=== PATIENT | female | born 2000 | race Caucasian/White ===

== ENCOUNTER 2023-06-17 09:24 | Outpatient (CLI) | payer OTHER ==
[2023-06-17 12:02] LABS: HCT - HEMATOCRIT 37.1 % (37.0-47.0); MEAN CORPUSCULAR HEMOGLOBIN 29.8 pg (27.0-31.0); MEAN CORPUSCULAR HGB CONC 32.3 g/dL (32.0-36.0); MEAN CORPUSCULAR VOLUME 92.1 fL (81.0-99.0); MEAN PLATELET VOLUME 10.5 fL (7.9-10.8); RED BLOOD COUNT 4.03 10^6/uL (4.20-5.40); RED CELL DISTRIBUTION WIDTH 13.5 % (12.0-15.0)
== END 2023-06-17 09:25 | disposition home or self-care (01) ==
LOC: LAB.N 09:24
PROVIDERS: ATTEND Obstetrics & Gynecology
DX: Z34.90 Encounter for supervision of normal pregnancy, unspecified, unspecified trimester (principal); Z36.89 Encounter for other specified antenatal screening
CPT/HCPCS: 36415; 82950; 85027

== ENCOUNTER 2023-06-25 06:20 | Outpatient (CLI) | payer OTHER ==
--- NOTE | 2023-06-25 11:07 | Ultrasound Report ---
PROCEDURE: OB Anatomy Scan INDICATIONS: SUPERVISION OF OUTSIDE/PRIOR DATING DATA: Last menstrual period (LMP): 12/11/2022. LMP-based estimated date of delivery (COLBY): 09/17/2023. First dating scan (date and location): 02/08/2023. Estimated date of delivery (COLBY) from first dating scan: 09/17/2023 by report. The below data below was generated using the working COLBY of 09/17/2023 TECHNIQUE: Real-time scanning was performed of the fetus, with image documentation and biometric measurements. Endovaginal scanning: Not performed. COMPARISON: No previous study is available for comparison at the time of this dictation. FINDINGS: General: A single living intrauterine gestation is present. Presentation: Vertex Placenta: Placental position is anterior, without previa. Amniotic fluid index: 16.5 cm, within normal limits for gestational age. heart rate: 148 beats per minute. Maternal cervical canal: 3.8 cm long; normal length is 2.5 cm or more. biometrics: Biparietal diameter: 7.4 cm, 29 weeks 6 days, 89th percentile Head circumference: 27.5 cm, 30 weeks 1 day, 83rd percentile Abdominal circumference: 24.4 cm, 28 weeks 4 days, 62nd percentile Femur length: 5.7 cm, 29 weeks 5 days, 83rd percentile Estimated gestational age from initial scan: 28 weeks 0 days Composite gestational age from present scan: 29 weeks 4 days Estimated weight and percentile: 1351 g, 82nd percentile Measurement variability in biometric dating: +/- 10 days from 12-20 weeks gestation, +/- 2 weeks from 20-30 weeks gestation, +/- 3 weeks at 30 weeks gestation or later. Anatomic survey: Neuro: Dependent lateral ventricle is normal at less than 10 mm. The nondependent lateral ventricle i s not well seen due to shadowing from the overlying calcified calvarium. Cisterna magna is normal at 3-11 mm. Cerebellum is normal in size and morphology. Nuchal skin fold: Not measured due to gestational age. Face: Nose and lips, facial profile are normal. Spine: No evidence for spina bifida. Heart: 4-chambered heart is present, with normal ventricular outflow tracts. Diaphragm: Diaphragm is intact. Stomach: Left-sided stomach is present. Kidneys: No hydronephrosis. Normal is less than 5 mm in 2nd trimester, less than 7 mm in 3rd trimester. Cord: 3 vessel cord has orthotopic insertion. Bladder: Normal in size. Extremities: All 4 extremities are visualized. IMPRESSION: 1.Single live intrauterine with appropriate growth. 2. anatomic survey is within normal limits for gestational age. Reviewed by: Tono Gonzales MD on 06/25/2023 11:06 AM [facility] Approved by: Tono Gonzales MD on 06/25/2023 11:06 AM PST Station ID: [id number]
== END 2023-06-25 06:21 | disposition home or self-care (01) ==
LOC: DI 06:20
PROVIDERS: ATTEND Obstetrics & Gynecology
DX: Z34.93 Encounter for supervision of normal pregnancy, unspecified, third trimester (principal); Z36.89 Encounter for other specified antenatal screening

== ENCOUNTER 2023-08-01 08:00 | Outpatient (CLI) | payer OTHER ==
[2023-08-02 00:44] LABS: BACTERIAL VAGINOSIS DNA NEGATIVE (NEGATIVE); CANDIDA GLABRATA DNA NEGATIVE (NEGATIVE); CANDIDA GROUP DNA POSITIVE (NEGATIVE); CANDIDA KRUSEI DNA NEGATIVE (NEGATIVE); TRICHOMONAS VAGINALIS DNA NEGATIVE (NEGATIVE)
== END 2023-08-01 23:59 | disposition home or self-care (01) ==
LOC: LAB.WC 08:00
PROVIDERS: ATTEND Nurse Practitioner
DX: L29.8 Other pruritus (principal)
CPT/HCPCS: 81514

== ENCOUNTER 2023-08-12 06:52 | Outpatient (CLI) | payer OTHER ==
--- NOTE | 2023-08-12 16:15 | Ultrasound Report ---
PROCEDURE: OB Follow up INDICATIONS: UTERINE SIZE DATE DISCREPANCY OUTSIDE/PRIOR DATING DATA: Last menstrual period (LMP): 12/11/2022. LMP-based estimated date of delivery (COLBY): 09/17/2023. First dating scan (date and location): 02/08/2023. Estimated date of delivery (COLBY) from first dating scan: 09/17/2023. The below data below was generated using the clinical/ultrasound COLBY of 09/17/2023 TECHNIQUE: Real-time scanning was performed of the fetus, with image documentation and biometric measurements. COMPARISON: [Ultrasound 06/25/2023 FINDINGS: General: A single living intrauterine gestation is present. Presentation: Vertex Placenta: Placental position is anterior, without previa. Amniotic fluid index: 13.7 cm, within normal limits for gestational age. Largest pocket measures 4. 4 cm. heart rate: 137 beats per minute. Maternal cervical canal: Not assessed biometrics: Biparietal diameter: 9.0 cm 36 weeks 2 days 86th percentile Head circumference: 32 cm 36 weeks 0 days 46 percentile Abdominal circumference: 30 cm 20 weeks 4 days 22nd percentile Femur length: 7 cm 36 weeks 0 days 74th percentile Estimated gestational age from initial scan: 34 weeks 6 days Composite gestational age from present scan: 35 weeks 3 days Estimated weight and percentile: 2525 or 25 g 45th percentile Measurement variability in biometric dating: +/- 10 days from 12-20 weeks gestation, +/- 2 weeks from 20-30 weeks gestation, +/- 3 weeks at 30 weeks gestation or more. Other: Not applicable. IMPRESSION: Single live intrauterine with gestational age today of 35 weeks 3 days. Appropriate interval growth. TALI measures 13.7cm. Reviewed by: Tiffany Bermeo MD on 08/12/2023 4:13 PM PDT Approved by: Tiffany Bermeo MD on 08/12/2023 4:13 PM PDT Station ID: [id number]
== END 2023-08-12 06:53 | disposition home or self-care (01) ==
LOC: DI 06:52
PROVIDERS: ATTEND Nurse Practitioner
DX: O26.843 Uterine size-date discrepancy, third trimester (principal); Z3A.35 35 weeks gestation of pregnancy

== ENCOUNTER 2023-08-23 08:00 | Outpatient (CLI) | payer OTHER | END 2023-08-23 23:59 | disposition home or self-care (01) | LOC: LAB.WC 08:00 | PROVIDERS: ATTEND Nurse Practitioner | DX: Z36.85 Encounter for antenatal screening for Streptococcus B (principal) | CPT/HCPCS: 87797 ==

== ENCOUNTER 2023-09-10 07:56 | Inpatient (IN) | payer OTHER ==
[2023-09-10] MEDS ORDERED: LABETALOL 20 MG/4 ML SYRINGE IVP PRN ×3 (08:36)
[2023-09-10] MEDS ORDERED: ONDANSETRON ODT 4 MG TABLET TL PRN (08:36)
[2023-09-10] MEDS ORDERED: METHYLERGONOVINE 0.2 MG/ML VIAL IM PRN (08:36)
[2023-09-10] MEDS ORDERED: TERBUTALINE 1 MG/ML VIAL SUBQ PRN (08:36)
[2023-09-10] MEDS ORDERED: fentaNYL 100 MCG/2 ML VIAL IVP PRN (08:36)
[2023-09-10] MEDS ORDERED: hydrALAZINE INJ 20 MG/ML VIAL IVP PRN ×2 (08:36)
[2023-09-10] MEDS ORDERED: miSOPROStoL 200 MCG TABLET PR PRN (08:36)
[2023-09-10] MEDS ORDERED: TRANEXAMIC ACID IN NACL 1,000 MG/100 ML BAG IV PRN (08:36)
[2023-09-10] MEDS ORDERED: ACETAMINOPHEN 500 MG TABLET PO PRN (08:36)
[2023-09-10] MEDS ORDERED: lidocaine 1% 20 ML MDV ID PRN (08:36)
[2023-09-10] MEDS ORDERED: OXYTOCIN/SODIUM CHLORIDE 500 ML IV PRN ×2 (08:36→14:59)
[2023-09-10] MEDS ORDERED: NIFEdipine 10 MG CAPSULE PO PRN (08:36)
[2023-09-10] MEDS ORDERED: OXYTOCIN 10 UNIT/ML VIAL IM PRN (08:36)
[2023-09-10] MEDS ORDERED: SODIUM CHLORIDE FLUSH 0.9% 10 ML SYRINGE IVP PRN (08:36)
[2023-09-10] MEDS ORDERED: miSOPROStoL 200 MCG TABLET BC PRN (08:36)
--- NOTE | 2023-09-10 08:36 | HISTORY & PHYSICAL EXAMINATION ---
Admit History - Visit Reason Visit Reason: Other (presents for labor induction at term) - : 1 Care: positive: [facility] Smoking Status: Former smoker - Other Maternal History Other Maternal History: HPI: presents for induction but once on monitor, having prolonged random decels. these continue in spite of hydration. Patient presents today for her f/u at 38+3wks ...................................................................Rosanne Gil ALEXIS September 06, 2023 10:59 AM. Allergies: Allergies Reviewed: Done NAPROXEN (NAPROXEN) (Critical) OXYCODONE (OXYCODONE) (Critical) Medications: Meds Reviewed: Done Protonix 40 mg tablet,delayed release (DR/EC) (pantoprazole) Take 1 tablet by mouth once a day * ELECTRIC BREAST PUMP Use 1 device as directed as directed USE TO EXPRESS MILK ACCORDING TO BABY'S NEEDS Z39.1 COLBY 09/17/2023 * vitamin Problems: Uterine size-date discrepancy, third trimester (ICD-649.63) (KFZ66-K23.843) Supervision of other high risk , third trimester (ICD-V23.89) (ICD10- O09.893) Food allergy (ICD-V15.05) (IMW72-L22.018) Gastroparesis (ICD-536.3) (ESF48-Z15.84) Past Medical History: Eczema Gastroparesis GERD Restless leg syndrome anxiety/depression migraines w/o aura accessory spleen negative genetic carrier screens for CF, SMA, DMD, and Fragile X Neg sickle cell screen. exercise induced asthma left shoulder pain, tear? failed PT? Past Surgical History: EGD and colonoscopy 2021: found that most of her esophagus does not work properly and sphincter at end does not work properly and she does not digest food properly. and Gastroparesis foot surgeries x4 ([id number]) - 1 left bunionectomy and arch correction - 3 right, 1. bunionectomy and arch correction, 2. Revision, 3. MIGDALIA Denies any prior history of complications from anesthesia Risk Factors-CCC: Vital Signs: Patient Profile: 23 Years Old Female Height: 68 inches Weight: 201.9 pounds BMI: 30.81 BP sittin / 64 Vitals Entered By: Rosanne Cordero LPN (September 06, 2023 11:00 AM) Meds Reviewed: Done Allergies Reviewed: Done Flowsheet View for Follow-up Visit Estimated weeks of gestation: 38 3/7 Weight: 201.9 Blood pressure: 120 / 64 Headache: rarely Nausea/vomiting: not vomiting Edema: on and off, but not now. Fundal height: 36 FHR: 145 Vaginal bleeding: no Vaginal discharge: no activity: yes Labor symptoms: no position: vertex Taking vits? Y Smoking: n/a Next visit: 1 wk Comment: so far her gut feels good. here with her today. came back from outside [facility] last night, was on the [employer]. He is only here for 2 weeks. unless we can write him a letter to extend his leave. worries about her eating problems flaring after. 2 dogs that need attention at home. [place] worries how she will care for all of them. Discussed acclimating dogs to baby. [employer] website info. also worried about PP depression as already depressed somewhat. induction next Saturday. her mom and Yvette come on Saturday. tour now after visit. - DJL LMP: 12/11/22 COLBY by LMP: 09/16/22 US:02/08/23 - c/w dates Final COLBY: 09/17/23 1. transfer care 26 weeks with minimal care before that. no FAS. 2 gastroparesis better with -- CONCERN FOR AUTOIMMUNE ETIOLOGY / poss GI SARCOIDOSIS??? -- CONCERN FOR POSSIBLE POST- FLARE. - took 4x GI to Dx. Dx with swallow study & oscopy measuring gastic emptying time. - Rheum appointment scheduled in October 03. DISCOURAGED ELECTIVE C/S 2'2 GASTROPARESIS 4. h/o migraines with aura better with - NO OCPS 5. deployed. Letter given for induction timing. IOL 09/09 6. GERD: pantoprazole 40mg daily pre preg weight:154 BMI: 23.4 Blood type: O+/ antibody neg CBC: PLT 265 HCT 39 HGB 13.3 RUB:imm [ ] VZV: Order with next blood draw- not completed HBsAg: neg HepC: neg RPR/AB-EIA: neg HIV: neg PAP: 02/08/23 - normal GC/CT:neg HSV:denies self/partner Genetic testing: NIPT- low risk Panorama male CF- neg SMA-neg, DMD- neg FragX- neg Sickle cell- Neg Covid: declines Flu: declines FAS: Placenta: Anterior w/o Previa Cord: 3VC TALI: 16.5cm EFW:1351g 82nd%ile A1c- 4.9% 50gm OGCT: 121 TDAP: given 06/27/23 Breast Pump: rx given 06/27/23 3rd trimester: PLT 216 HGB 12.0 HCT 37.1 GBS:Negative Delivery plan: 39-week IOL 09/10/23 Contraception: Gender ID Identifies as Female LMP: 12/11/2022 EDC: 09/17/2023 Height: 68 (08/23/2023 10:24:01 AM) Weight: 201.9 Gonnorhea: negative (02/08/2023 4:29:38 PM) Chlamydia: negative (02/08/2023 4:29:44 PM) Urine Tox: +MJ (02/15/2023 11:02:31 AM) Group B: NEGATIVE (08/23/2023 10:30:00 AM) US: 8W 3D (02/08/2023 4:42:19 PM) Blood Type: O+ (02/14/2023 4:26:46 PM) RH Type: + (02/14/2023 4:26:53 PM) Last Antibody Screen: negative (02/14/2023 4:27:08 PM) Is pt sexually active? no Gonnorrhea: negative (02/08/2023 4:29:38 PM) Chlamydia: negative (02/08/2023 4:29:44 PM) HIV: negative (02/14/2023 4:29:24 PM) RPR: negative (02/14/2023 4:28:38 PM) Last Pap: Normal (02/08/2023 4:29:32 PM) - HPI Diagnosis/Indication for NST: Other (induction) Current EDU 09/17/23 Gestation 39 Weeks and 0 Days 1 Vital Signs Temperature 98.1 F 09/10/23 09:42 Heart Rate 87 09/10/23 09:42 Respiratory Rate 18 09/10/23 09:42 Blood Pressure 124/70 09/10/23 09:42 Temperature 98.1 F 09/10/23 11:15 Heart Rate 87 09/10/23 11:15 Respiratory Rate 18 09/10/23 11:15 Blood Pressure 124/70 09/10/23 11:15 O2 Saturation If not protocol: Oxygen Flow, liters/minute - NST Procedure Reactive for of 32 weeks gestation or more. NST tracing contains at least two heart rate accelerations that are at least 15 beats per minute above the baseline rate and lasting at least 15 seconds from onset to return to baseline within a twenty minute period. but having prolonged decels. - Results and Plan Plan: proceed with c section Physical - Abdominal Exam Vital Signs: Temp Pulse Resp BP Pulse Ox O2 Flow Rate 98.1 F 87 18 124/70 09/10/23 11:15 09/10/23 11:15 09/10/23 11:15 09/10/23 11:15 Contraction Intensity: positive: Mild Uterine Resting Tone: positive: Soft - Monitoring Strip Review: positive: Category II - Presentation Presentation: positive: Vertex - Vaginal Exam Membranes: positive: Membranes intact Plan for Labor - Plan For Labor I expect patient to be DC'd or transferred within 96 hours.: Yes Plan for Labor: proceed with c section for recurrent prolonged decels remote from delivery. no induction medications have been given. did try placing cervical catheter and another decel occurred. now with come contractions and recurrent late decels.
[2023-09-10] MEDS ORDERED: miSOPROStoL 100 MCG TABLET VG SCH (09:00)
[2023-09-10] MEDS ORDERED: SODIUM CHLORIDE FLUSH 0.9% 10 ML SYRINGE IVP SCH (09:00)
[2023-09-10] MEDS ORDERED: LACTATED RINGERS 1,000 ML IV SCH ×2 (09:00→16:00)
[2023-09-10 09:20] LABS: BASOPHILS % (AUTO) 0.3 %; EOSINOPHILS # (AUTO) 0.1 10^3/uL (0.0-0.7); EOSINOPHILS % (AUTO) 0.7 %; HCT - HEMATOCRIT 39.5 % (37.0-47.0); HGB - HEMOGLOBIN 12.6 g/dL (12.0-16.0); LYMPHOCYTES # (AUTO) 1.8 10^3/uL (1.5-3.5); LYMPHOCYTES % (AUTO) 17.4 %; MEAN CORPUSCULAR HEMOGLOBIN 28.2 pg (27.0-31.0); MEAN CORPUSCULAR HGB CONC 31.9 g/dL (32.0-36.0); MEAN CORPUSCULAR VOLUME 88.4 fL (81.0-99.0); MEAN PLATELET VOLUME 12.1 fL (7.9-10.8); MONOCYTES # (AUTO) 0.8 10^3/uL (0.0-1.0); MONOCYTES % (AUTO) 8.1 %; NEUTROPHILS # (AUTO) 7.6 10^3/uL (1.5-6.6); PLT - PLATELET COUNT 175 10^3/uL (130-450); RED BLOOD COUNT 4.47 10^6/uL (4.20-5.40); RED CELL DISTRIBUTION WIDTH 15.3 % (12.0-15.0); WHITE BLOOD COUNT 10.4 x10^3/uL (4.8-10.8)
[2023-09-10] MEDS: LACTATED RINGERS 1,000 ML IV PRN (09:30)
--- NOTE | 2023-09-10 11:25 | ANESTHESIA ---
Pre-Anesthesia VS, & Labs - Diagnosis induction of labor - Procedure labor epidural Vital Signs: Temp Pulse Resp BP Pulse Ox O2 Flow Rate 36.7 C 87 18 124/70 09/10/23 09:42 09/10/23 09:42 09/10/23 09:42 09/10/23 09:42 Height: 5 ft 7 in Weight (kg): 90.718 kg Body Mass Index: 31.3 BMI Classification: Obese - NPO Other - Is Patient ?: Yes - Lab Results Current Lab Results: Laboratory Tests 09/10/23 09:55: Blood Type Recheck O POSITIVE 09/10/23 08:50: WBC 10.4, RBC 4.47, Hgb 12.6, Hct 39.5, MCV 88.4, MCH 28.2, MCHC 31.9 L, RDW 15.3 H, Plt Count 175, MPV 12.1 H, Neut # (Auto) 7.6 H, Lymph # (Auto) 1.8, Foster # (Auto) 0.8, Eos # (Auto) 0.1, Baso # (Auto) 0.0, Absolute Nucleated RBC 0.00, Nucleated RBC % 0.0 09/10/23 08:50: Blood Type O POSITIVE, Antibody Screen NEGATIVE Fish Bones: 09/10/23 08:50 Home Medications and Allergies Active Medications Acetaminophen (Acetaminophen 500 Mg Tablet) 1,000 mg PO Q6HR PRN PRN Reason: Pain or Fever > 38C (100.4F) Fentanyl (Fentanyl 100 Mcg/2 Ml Vial) 50 mcg IVP Q1H PRN PRN Reason: Severe Pain (score 7-10) Hydralazine HCl (Hydralazine Inj 20 Mg/Ml Vial) 10 mg IVP .ONCE PRN; Protocol PRN Reason: SBP> or= 160 OR DBP> or= 110 Hydralazine HCl (Hydralazine Inj 20 Mg/Ml Vial) 5 - 10 mg IVP Q20M PRN; Protocol PRN Reason: SBP> or= 160 OR DBP> or= 110 Oxytocin/Sodium Chloride (Pitocin/Sodium Chloride) 500 mls @ 999 mls/hr IV PRN PRN; Protocol PRN Reason: POST- HEMORR PREVENTION Tranexamic Acid (Tranexamic 1,000 Mg/100ml-Nacl) 1,000 mg in 100 mls @ 600 mls/hr IV Q30M PRN PRN Reason: EBL >1200mL and within 3hr Lactated Ringer's (Lr) 1,000 mls @ 125 mls/hr IV .Q8H ISAI Lactated Ringer's (Lr) 1,000 mls @ 999 mls/hr IV PRN PRN PRN Reason: PER PHYSICIAN ORDER Last Admin: 09/10/23 09:30 Dose: 999 mls/hr Labetalol HCl (Labetalol 20 Mg/4 Ml Syringe) 20 mg IVP .ONCE PRN; Protocol PRN Reason: SBP> or= 160 OR DBP> or= 110 Labetalol HCl (Labetalol 20 Mg/4 Ml Syringe) 20 - 80 mg IVP Q10M PRN; Protocol PRN Reason: SBP> or= 160 OR DBP> or= 110 Lidocaine HCl (Lidocaine 1% 20 Ml Mdv) 20 ml ID .ONCE PRN PRN Reason: PERINEAL REPAIR Stop: 09/13/23 08:36 Methylergonovine Maleate (Methylergonovine 0.2 Mg/Ml Vial) 0.2 mg IM .ONCE PRN PRN Reason: Hemorrhage Misoprostol (Misoprostol 200 Mcg Tablet) 600 mcg BC .ONCE PRN PRN Reason: Hemorrhage Misoprostol (Misoprostol 200 Mcg Tablet) 800 mcg WV .ONCE PRN PRN Reason: Hemorrhage Misoprostol (Misoprostol 100 Mcg Tablet) 25 mcg VG Q4H ISAI Nifedipine (Nifedipine 10 Mg Capsule) 10 - 20 mg PO Q20M PRN; Protocol PRN Reason: SBP> or= 160 OR DBP> or= 110 Ondansetron HCl (Ondansetron Odt 4 Mg Tablet) 4 mg TL Q6HR PRN PRN Reason: Nausea / Vomiting Oxytocin (Oxytocin 10 Unit/Ml Vial) 10 unit IM .ONCE PRN PRN Reason: Step One if no IV access. Sodium Chloride (Sodium Chloride Flush 0.9% 10 Ml Syringe) 10 ml IVP Q8H ISAI Sodium Chloride (Sodium Chloride Flush 0.9% 10 Ml Syringe) 10 ml IVP PRN PRN PRN Reason: NEEDED PER PROVIDER ORDERS Terbutaline Sulfate (Terbutaline 1 Mg/Ml Vial) 0.25 mg SUBQ .ONCE PRN PRN Reason: Tachystole Anes History & Medical History - Anesthetic History Anesthesia Complications: reports: No previous complications - Medical History Cardiovascular: reports: None Pulmonary: reports: None Gastrointestinal: reports: GERD Smoking Status: Former smoker - Surgical History Orthopedic: reports: Other (foot surgeries) Exam General: Alert, Oriented x3, Cooperative Dental: WNL Mouth Opening: Greater than 4 Fingerbreadths Neck Mobility: Normal Mallampati classification: II Thyromental Distance: greater than 6 cm Respiratory: Lungs clear Cardiovascular: Regular rate Plan Anesthesia Type: Epidural Consent for Procedure(s) Verified and Reviewed: Yes Code Status: Attempt Resuscitation ASA classification: 2-Mild systemic disease Is this case an emergency?: No
[2023-09-10] MEDS ORDERED: ceFAZolin (2G) 2 GM in SODIUM CHLORIDE 0.9% MINIBAG 100 ML IV ONE (13:03)
[2023-09-10] MEDS ORDERED: ACETAMINOPHEN 500 MG TABLET PO ONE (13:03)
[2023-09-10] MEDS ORDERED: fentaNYL 100 MCG/2 ML VIAL ONE ×2 (13:08→13:53)
[2023-09-10] MEDS ORDERED: ONDANSETRON 4 MG/2 ML VIAL ONE (13:09)
[2023-09-10] MEDS ORDERED: ePHEDrine 50 MG/ML VIAL IVP ONE (13:09)
[2023-09-10] MEDS ORDERED: PHENYLEPHRINE HCL 0.5 MG/5 ML AMPULE ONE (13:09)
[2023-09-10] MEDS ORDERED: OXYTOCIN 10 UNIT/ML VIAL ONE (13:09)
[2023-09-10] MEDS ORDERED: ROPIVACAINE 0.5% PF 20 ML VIAL ONE ×2 (13:10→14:42)
[2023-09-10] MEDS ORDERED: SODIUM CHLORIDE 0.9% 10 ML VIAL IVP ONE ×2 (13:11→14:43)
[2023-09-10] MEDS ORDERED: DEXAMETHASONE 4 MG/ML VIAL ONE (13:11)
[2023-09-10] MEDS ORDERED: KETAMINE 200 MG/20 ML VIAL ONE (13:48)
[2023-09-10] MEDS ORDERED: SIMETHICONE CHEW 80 MG TABLET PO PRN (14:59)
[2023-09-10] MEDS ORDERED: ONDANSETRON 4 MG/2 ML VIAL IVP PRN ×2 (14:59→15:33)
[2023-09-10] MEDS ORDERED: diphenhydrAMINE INJ 50 MG/ML VIAL IVP PRN (14:59)
[2023-09-10] MEDS ORDERED: CALCIUM CARBONATE CHEW 500 MG TABLET PO PRN (14:59)
[2023-09-10] MEDS ORDERED: NALOXONE 0.4 MG/ML VIAL IVP PRN ×2 (14:59→15:33)
[2023-09-10] MEDS ORDERED: METOCLOPRAMIDE 10 MG/2 ML VIAL IVP PRN ×2 (14:59→15:33)
[2023-09-10] MEDS: LACTATED RINGERS 1,000 ML IV ONE (15:06)
--- NOTE | 2023-09-10 15:32 | ANESTHESIA POST OP EVALUATION ---
Anesthesia Post Eval - Post Anesthesia Eval Vitals: Last Vital Signs Temp 36.4 C L 09/10/23 15:00 Pulse 91 09/10/23 15:20 Resp 16 09/10/23 15:20 BP 131/75 H 09/10/23 15:20 Pulse Ox 100 09/10/23 15:20 O2 Flow Rate CV Function Including HR & BP: Stable Pain Control: Satisfactory Nausea & Vomiting: Negative Mental Status: Baseline Respiratory Status: Airway Patent Hydration Status: Satisfactory Anesthesia Complications: None
[2023-09-10] MEDS ORDERED: ATROPINE ABBOJECT 1 MG/10 ML SYRINGE IVP PRN (15:33)
[2023-09-10] MEDS ORDERED: HYDROmorphone 0.5 MG/0.5 ML SYRINGE IVP PRN (15:33)
[2023-09-10] MEDS ORDERED: MORPHINE 2 MG/ML CARPUJECT IVP PRN (15:33)
[2023-09-10] MEDS ORDERED: ePHEDrine 50 MG/ML VIAL IVP PRN (15:33)
[2023-09-10] MEDS: ACETAMINOPHEN 500 MG TABLET PO SCH (17:36)
[2023-09-10] MEDS: HYDROmorphone 2 MG TABLET PO PRN (17:37)
[2023-09-10] MEDS ORDERED: KETOROLAC 30 MG/ML VIAL IVP SCH (18:00)
--- NOTE | 2023-09-10 18:49 | PHARMACY PROGRESS NOTE ---
- Best Possible Medication History Admit Date and Time: 09/10/23 0836 Processed by: Pharmacy Medications reviewed in ED?: No Medication History completed: Yes Patient Interview: Pt unable to participate Secondary Source(s): Physician records, Insurance records As the person ultimately responsible for medication therapy, providers are able to order a medication from an existing home medication list in [facility] via the "Reconcile Routine" prior to Confirmation of that medication by it support specialist. Such practice is discouraged except when the physician, in their clinical judgment, deems that a medical need exists for a medication without regard to previous use.
[2023-09-10] MEDS: fentaNYL 100 MCG/2 ML VIAL IVP PRN (19:59)
--- NOTE | 2023-09-10 21:52 | OPERATIVE REPORT ---
Operative Report - General Admit Date: 09/10/23 Procedure Date: 09/10/23 Planned Procedure: c section Pre-Op Diagnosis: category 2 tracing remote from delivery Procedure Performed: primary low transverse c section Post Op Diagnosis: same, delivered. IUGR baby. placental insufficiency - Procedure Note Primary Surgeon: Peggy Cates MD Secondary Surgeon: ALONDRA Roy Anesthesia Provider: Rosana Rod CRNA Anesthesia Technique: Regional block (TAP block), Spinal Pathology: placenta IV Fluids (mL): 1,000 Estimated Blood Loss (mL): 800 Urine Output (mL): 100 - Other Other Information/Narrative: Procedure: Low Transverse Section. Indications for Procedure: Patient is a 23 year-old woman, G1at 39 weeks by LMP= 8 weeks ultrasound. She had care at 8 weeks then none until 26 weeks when she transferred to us. She came in for elective induction today and baby had multiple prolonged decels about every 20 min with no provocation. Then she started having contractions and had late decels with each one, right before we went back to OR. In between these decels baby looked perfect. Given that she was remote from delivery, 2 cm and not in labor, c section was recommended and she agreed. Procedure Details The risks, benefits, complications, treatment options, and expected outcomes were discussed with the patient. The patient concurred with the proposed plan, giving informed consent. The patient was taken to the Operating Room, identified. 2 grams of Cefazolin were given. She had sequential compression de vices on her lower extremities. Leong catheter was placed. Doppler FHT prior to prep sounded very normal. A Time Out was held and the above information confirmed. The patient was prepped in the usual sterile manner. Drapes were placed. Anesthesia was tested and found to be adequate, but not great. 2% plain lidocaine was injected into the skin. A Pfannenstiel incision was made and carried down through the subcutaneous tissue to the fascia. Fascial incision was made and extended transversely. The fascia was from the underlying rectus tissue superiorly and inferiorly. The peritoneum was identified and entered. This was very painful for the patient. Peritoneal incision was stretched very gently. The Ronald retractor was placed and rolled down. SUPERVISOR TOY ASSEMBLY gave some IV medication. A low transverse uterine incision was made. The incision was stretched manually. Bag of water was entered during the process and fluid was clear. The baby's head was elevated through the incision. This was difficult as she was very tender and the incision was not stretched as much as normal. After multiple tries with my hand and the forceps blade, I was able to get the baby's head into proper position and with a fundal push, he was able to be delivered. Baby was dried and stimulated, but was not breathing so cord was clamped and cut and baby was handed off to pediatric team headed by Dr. Ramirez. After the umbilical cord was clamped and cut, cord blood was obtained for evaluation and for gases. The placenta was removed intact using gentle traction. The uterine incision was closed with running locked sutures of 0 Monocryl suture. A second horizontal imbricating layer was placed with the same suture. Hemostasis was not observed and a few stitches were placed in the midline where there was some bleeding. After this incision seemed dry. Patient was still very painful with any manipulation so I was not able to get a look at the tubes and ovaries. The Ronald retractor was removed. Rectus muscles were examined carefully for bleeding. The fascia was then reapproximated with running sutures of 0 Vicryl. The skin was closed with 3.0 Monocryl in subcuticular fashion. Wide steri strip was placed over the wound. Bandage was placed. Uterus was expressed. Fundus was firm. Patient was then brought to the PACU in stable condition. Given how painful she was, a TAP block was placed by SUPERVISOR TOY ASSEMBLY. Instrument, sponge, and needle counts were correct prior the abdominal closure and at the conclusion of the case. My dyer assistant was scrubbed and present during the entire procedure and assisted with visualization, hemostasis, fundal pressure for infant delivery, and closure. Findings: Jessie Rader weighed 2521 grams and Apgars were 4/8/6 at 1/5/10 minutes Placenta was examined and there were multiple white areas that were presumably infarcts, covering about 50% of the surface. It is sent for pathology. Baby initially was in the nursery but went back with mom after about 1 hour. Drains: Leong catheter to gravity Complications: None; patient tolerated the procedure well. Disposition: PACU. Condition: stable Plan: Routine post op care
[2023-09-10] MEDS: DOCUSATE SODIUM 100 MG CAPSULE PO SCH (22:23)
[2023-09-10] MEDS: FAMOTIDINE 20 MG/2 ML VIAL IVP SCH (22:24)
[2023-09-11 06:28] LABS: MEAN CORPUSCULAR HEMOGLOBIN 27.9 pg (27.0-31.0); MEAN CORPUSCULAR HGB CONC 31.4 g/dL (32.0-36.0); MEAN CORPUSCULAR VOLUME 88.8 fL (81.0-99.0); MEAN PLATELET VOLUME 11.7 fL (7.9-10.8); RED BLOOD COUNT 3.94 10^6/uL (4.20-5.40); RED CELL DISTRIBUTION WIDTH 15.6 % (12.0-15.0)
[2023-09-11] MEDS: ENOXAPARIN 40 MG/0.4 ML SYRINGE SUBQ SCH (10:43)
[2023-09-11] MEDS ORDERED: IBUPROFEN 600 MG TABLET PO SCH (15:00)
--- NOTE | 2023-09-11 20:41 | PROVIDER PROGRESS NOTE ---
Subjective - Prog Note Date Prog Note Date: 09/11/23 Prog Note Time: 12:45 - Subjective Pt reports feeling: Improved Subjective: sitting in bed eating lunch. RN finger feeding baby. pain is well controlled. up voiding. no concerns. Objective - Vital Signs/Intake & Output Reviewed Vital Signs: Yes Vital Signs: Vital Signs x48h Temp Pulse Resp BP Pulse Ox 09/11/23 16:55 97.9 F 85 18 140/82 H 99 09/11/23 13:16 98.4 F 92 16 135/82 H 99 Intake & Output: Intake & Output 09/08/23 09/09/23 09/10/23 09/11/23 23:59 23:59 23:59 23:59 Output Total 800 1500 Balance -800 -1500 - Objective Respiratory: positive: No respiratory distress Rectal: positive: Other (appropriately tender) - Lab Results Fish Bones: 09/11/23 06:15 Other Labs: Lab Results x24hrs 09/11/23 Range/Units 06:15 WBC 19.0 H (4.8-10.8) x10^3/uL RBC 3.94 L (4.20-5.40) 10^6/uL Hgb 11.0 L (12.0-16.0) g/dL Hct 35.0 L (37.0-47.0) % MCV 88.8 (81.0-99.0) fL MCH 27.9 (27.0-31.0) pg MCHC 31.4 L (32.0-36.0) g/dL RDW 15.6 H (12.0-15.0) % Plt Count 193 (130-450) 10^3/uL MPV 11.7 H (7.9-10.8) fL Assessment/Plan - Problem List (1) Delivery by section Impression: recovering well and baby doing well. routine post op care.
--- NOTE | 2023-09-11 20:45 | PROVIDER PROGRESS NOTE ---
Subjective - Subjective Subjective: all spots that she has been poked look like mosquito bites. will give benadryl and encourage her to take a shower to wash off cleaning solution that could be irritating. Objective - Vital Signs/Intake & Output Vital Signs: Vital Signs x48h Temp Pulse Resp BP Pulse Ox 09/11/23 16:55 97.9 F 85 18 140/82 H 99 09/11/23 13:16 98.4 F 92 16 135/82 H 99 Intake & Output: Intake & Output 09/08/23 09/09/23 09/10/23 09/11/23 23:59 23:59 23:59 23:59 Output Total 800 1500 Balance -800 -1500 - Lab Results Fish Bones: 09/11/23 06:15 Other Labs: Lab Results x24hrs 09/11/23 Range/Units 06:15 WBC 19.0 H (4.8-10.8) x10^3/uL RBC 3.94 L (4.20-5.40) 10^6/uL Hgb 11.0 L (12.0-16.0) g/dL Hct 35.0 L (37.0-47.0) % MCV 88.8 (81.0-99.0) fL MCH 27.9 (27.0-31.0) pg MCHC 31.4 L (32.0-36.0) g/dL RDW 15.6 H (12.0-15.0) % Plt Count 193 (130-450) 10^3/uL MPV 11.7 H (7.9-10.8) fL
[2023-09-11] MEDS: diphenhydrAMINE 25 MG CAPSULE PO PRN (21:10)
[2023-09-11] MEDS: FAMOTIDINE 20 MG TABLET PO SCH (21:10)
[2023-09-11] MEDS: HYDROmorphone 2 MG TABLET PO PRN (22:46)
--- NOTE | 2023-09-12 10:33 | CONSULTATION NOTE ---
Consultation Report: Visited patient regarding her rashes; they are on her abdomen, back, and even at her iv insertion sites. I explained that this is likely a sensitivity or allergy to chlorhexidne prep that was used for her surgery, regional anesthesia, tap blocks and IV insertion. Advised her to inform health care providers of this reaction with future procedures, and consider an alternative. 1% hydrocortisone cream to affected areas BID was ordered. Patient was satisfied with this explanation and treatment, and is otherwise doing well; questions were answered and concerns addressed.
[2023-09-12] MEDS: HYDROCORTISONE 1% CREAM 28 GM TUBE TOP SCH (10:39)
[2023-09-13 08:53] VITALS: BP 133/93; O2SAT 100
--- NOTE | 2023-09-13 09:14 | Discharge Plan ---
Discharge Plan Problem Reviewed?: Yes Disposition: Home, Self Care Condition: Good Diet: Regular Activity Restrictions: Additional Comments Shower Restrictions: No Driving Restrictions: Yes (Until pain is controlled without opioids) Instruction Topics: C Section Dc, Depression No Smoking: If you smoke, Please STOP! Call for help. Follow-up with: Clyde Mccauley MD [Provider Admit Priv/Credential] -
--- NOTE | 2023-09-13 09:15 | DISCHARGE SUMMARY ---
Discharge Summary Admit Date: 09/10/23 Discharge Date: 09/13/23 Discharging Provider: Clyde Mccauley MD Code Status: Attempt Resuscitation Condition at Discharge: Good Discharge Disposition: 01 Home, Self Care - DIAGNOSES Admission Diagnoses: 39 weeks gestation Category 2 tracing Discharge Diagnoses with Status of Each Condition: 39 weeks gestation Category 2 tracing Status post primary low-transverse section Deliver of live thompson Contact dermatitis - HPI History of Present Illness: Subjective Patient reports she is doing well. Lochia appropriate. Denies heavy bleeding. Ambulating. Pelvic and abdominal pain well-controlled. Tolerating oral intake. Diet: Regular. Voiding without difficulty. Passing flatus. Denies BM. Patient is bonding with baby in room Breast feeding going well. Denies feeling lightheaded, dizzy or excessively fatigued. Rash on abdomen and belly is itchy. Not spreading Objective General: Alert, oriented, no apparent distress. Cardiovascular: Regular rate. Regular rhythm. Lungs: No increased work of breathing. Abdomen: Uterus firm. Below umbilicus. No guarding or rebound. Red, splotchy rash, non-raised on most of abdomen. Back: Small area of similar rash in mid back near site of epdural Extremities: No pain on palpation. No cords palpated. Distal pulses intact. - HOSPITAL COURSE Hospital Course: Patient is brought in for induction of labor at term. Prior to interventions, she was noted to have several prolonged decelerations and decision was made to proceed with section as term due to the frequent decelerations and thought that she would not tolerate labor induction. section was unremarkable. Her course was complicated by a rash, likely to the chlorhexidine assuming contact dermatitis. She only had this in the areas of her abdominal prep for surgery and back prep for the epidural. She was doing well and was discharged on postoperative day 2. - ALLERGIES Allergies/Adverse Reactions: Allergies Allergy/AdvReac Type Severity Reaction Status Date / Time chlorhexidine AdvReac Rash Verified 09/12/23 10:35 naproxen AdvReac Rash Verified 09/13/23 03:39 oxycodone AdvReac Rash Verified 09/13/23 03:39 - MEDICATIONS Home Medications: Ambulatory Orders Medication Instructions Recorded Confirmed Pantoprazole [Protonix] 40 mg PO QDAC 09/10/23 09/10/23 No122/Iron/Folic Acid 1 tab PO DAILY 09/10/23 09/10/23 [ Multi Tablet] HYDROmorphone [Dilaudid] 2 mg PO Q4H PRN #10 tablet 09/13/23 - LABS Result Diagrams: 09/11/23 06:15 - FOLLOW UP Follow Up: With Clyde Mccauley MD at [facility] in 1 week - TIME SPENT Time Spent in Discharge (Minutes): 30
[2023-09-13] MEDS: VARICELLA VACCINE LIVE/PF 1,350 UNIT/0.5 ML VIAL SUBQ ONE (12:15)
--- NOTE | 2023-09-13 14:34 | Labor Flowsheet ---
Labor Flowsheet Datetime Report Generated by CPN: 09/13/2023 14:34 Datetime: 09/10/2023 13:14 UTERINE ACTIVITY Monitor Mode: External Frequency (min): irregular Quality: Mild Duration (sec): 40-120 Pattern: Normal: <= 5 Contractions in 10 Minutes Resting Tone (Palpate): Relaxed ASSESSMENT A Monitor Mode: Telemetry FHR Baseline Rate : 135 Variability: Moderate 6-25 bpm Accelerations: 15X15 Decelerations: Late; Prolonged Category: Category II Datetime: 09/10/2023 13:01 Patient Care Comments: anesthesia at bedside for consent to operate Datetime: 09/10/2023 12:49 Patient Position/Activity: Hands-Knees Datetime: 09/10/2023 12:46 MEDICATIONS Medication Comments: 500 ml iv bolus given Datetime: 09/10/2023 11:39 PATIENT CARE IV/Blood Work: IV Bolus Started; IV Bolus Given ml @ 500 Datetime: 09/10/2023 11:34 VITAL SIGNS NBP Sys/Padmini/Mean (mmHg): 127 : 84 Pulse: 95 Respirations: 18 SpO2 (%): 99 Temperature (C): 36.7 Datetime: 09/10/2023 11:31 : 94 Datetime: 09/10/2023 11:04 FHR Baseline Changes: No Baseline Change ANESTHESIA Anesthesia Plans: Epidural Anesthesia Comments: [employer] at bedside to consent for epidural when needed Datetime: 09/10/2023 10:34 Contraction Comments: mild Datetime: 09/10/2023 10:09 Oxygen Method: Room Air Datetime: 09/10/2023 09:28 PAIN Pain Presence: None/Denies MATERNAL ASSESSMENT Level of Consciousness: Alert DTR's/Clonus: DTRs 2+ Headache: Denies Nausea/Vomiting: Denies RUQ Epigastric Pain: Present Datetime: 09/10/2023 09:02 VAGINAL EXAM Dilatation (cm): 0.5 Effacement (%): 50 Station: -2 Exam by: Jae Owens [facility] Vaginal Bleeding: None Cervix, Consistency: Soft Cervix, Position: Anterior Datetime: 09/10/2023 08:27 Monitor Interventions for FHR: Ultrasound Adjusted
== END 2023-09-13 12:30 | disposition home or self-care (01) | DRG 788 ==
LOC: WFO 07:56 → FBP 08:00 → WFO 08:35 → FBP 08:36
PROVIDERS: ADMIT Obstetrics & Gynecology; ATTEND Obstetrics & Gynecology
PROC: 0U7C7ZZ Dilation of Cervix, Via Natural or Artificial Opening (ICD-10-PCS; 2023-09-10)
PROC: 10D00Z1 Extraction of Products of Conception, Low, Open Approach (ICD-10-PCS; principal; 2023-09-10 13:00)
DX: O76 Abnormality in fetal heart rate and rhythm complicating labor and delivery (principal); Z3A.39 39 weeks gestation of pregnancy; Z37.0 Single live birth; O90.89 Other complications of the puerperium, not elsewhere classified; L25.1 Unspecified contact dermatitis due to drugs in contact with skin; T49.0X5A Adverse effect of local antifungal, anti-infective and anti-inflammatory drugs, initial encounter; Y92.239 Unspecified place in hospital as the place of occurrence of the external cause; Z87.891 Personal history of nicotine dependence; Z53.09 Procedure and treatment not carried out because of other contraindication
CPT/HCPCS: 36415; 85025; 85027; 86787; 86850; 86900; 86901; 90716; A9270; J1650; J2372; J2795; J3490; J7120